=== PATIENT | female | born 1980 | race Caucasian/White ===

== ENCOUNTER 2017-12-29 07:20 | Emergency (ER) | payer OTHER ==
[2017-12-29 07:48] VITALS: O2SAT 100
--- NOTE | 2017-12-29 08:12 | ERPHSYRPT ---
- History of Present Illness Time Seen by Provider: 12/29/17 07:58 Historian: patient Exam Limitations: no limitations Patient Subjective Stated Complaint: left flank pain Triage Nursing Assessment: to er c/o left flank pain onset 2 days riverboat [employer] pt denies any pain with urination states pain increases with movement. pt arrives pwd resp easy [id number] Physician History: The patient is a 37-year-old female complaining of intermittent and worsening left flank pain that began 2 days ago at 2 AM in the morning, waking her up. She has tried to relieve the pain with ibuprofen but it has not worked. She denies nausea, vomiting, or diarrhea. She denies fever or chills. She has no problems with urination. Her last menstrual period was December 16, 2 weeks ago. Her father has a history of kidney stones. The patient has never had kidney stones, but is worried she might have one. Her past medical history is significant for depression, migraines, and Albert's neuroma. Timing/Duration: day(s) (2) Activities at Onset: sleep Quality: sharpness Abdominal Pain Onset Location: flank (left) Pain Radiation: no radiation Severity of Pain-Max: moderate Severity of Pain-Current: moderate Modifying Factors: Improves With: analgesics Associated Symptoms: denies symptoms Previous symptoms: no prior history Allergies/Adverse Reactions: acetaminophen [From Vicodin] Adverse Reaction (Verified 12/29/17 07:49) hydrocodone [From Vicodin] Adverse Reaction (Verified 12/29/17 07:49) Home Medications: Aripiprazole [Abilify] 2.5 mg PO DAILY 12/29/17 [History] Clonazepam [Clonazepam] 0.5 mg PO TID 12/29/17 [History] Lamotrigine [Lamictal] 150 mg PO DAILY 12/29/17 [History] Topiramate [Topiramate] 175 mg PO DAILY 12/29/17 [History] Vortioxetine Hydrobromide [Trintellix] 20 mg PO DAILY 12/29/17 [History] Hx Influenza Vaccination/Date Given: No - Review of Systems Constitutional: No Fever, No Chills Eyes: No Symptoms Ears, Nose, & Throat: No Symptoms Respiratory: No Cough, No Dyspnea Cardiac: No Chest Pain, No Edema, No Syncope Abdominal/Gastrointestinal: No Abdominal Pain, No Nausea, No Vomiting, No Diarrhea Genitourinary Symptoms: No Dysuria Musculoskeletal: Back Pain Skin: No Rash Neurological: No Dizziness, No Focal Weakness, No Sensory Changes Psychological: No Symptoms Endocrine: No Symptoms Hematologic/Lymphatic: No Symptoms Immunological/Allergic: No Symptoms All Other Systems: Reviewed and Negative - Past Medical History Pertinent Past Medical History: Yes Neurological History: No Pertinent History ENT History: No Pertinent History Cardiac History: Other Respiratory History: No Pertinent History Endocrine Medical History: No Pertinent History Musculoskeletal History: No Pertinent History GI Medical History: No Pertinent History History: No Pertinent History Psycho-Social History: No Pertinent History Female Reproductive Disorders: No Pertinent History Other Medical History: tricusped regurgitation - Past Surgical History Past Surgical History: Yes Other Surgical History: breast lift and biopsy of buttocks - Social History Smoking Status: Never smoker Drug Use: none - Female History Hx Last Menstrual Period: 12/16/17 Hx Now: No - Nursing Vital Signs Nursing Vital Signs: Initial Vital Signs Temperature 98.7 F 12/29/17 07:41 Pulse Rate 94 H 12/29/17 07:41 Respiratory Rate 18 12/29/17 07:41 Blood Pressure 105/63 12/29/17 07:41 O2 Sat by Pulse Oximetry 100 12/29/17 07:41 Pain Scale Pain Intensity [Left Back] 7 Pain Intensity 4 - Physical Exam General Appearance: no apparent distress (pt alert and laughing), alert Eye Exam: PERRL/EOMI, eyes nml inspection Ears, Nose, Throat Exam: normal ENT inspection, pharynx normal, moist mucous membranes Neck Exam: normal inspection, non-tender, supple, full range of motion Respiratory Exam: normal breath sounds, lungs clear, No respiratory distress Cardiovascular Exam: regular rate/rhythm, normal heart sounds Gastrointestinal/Abdomen Exam: soft, No tenderness, No mass Pelvic Exam: not done Rectal Exam: not done Back Exam: CVA tenderness (mild left flank tenderness) Extremity Exam: normal inspection, normal range of motion, pelvis stable Neurologic Exam: alert, oriented x 3, cooperative, normal mood/affect, nml cerebellar function, sensation nml, No motor deficits Skin Exam: normal color, warm, dry SpO2 Interpretation: normal SpO2: 100 Oxygen Delivery: Room Air Ordered Tests: Active Orders 24 hr Category Date Time Status IV Insertion STAT Care 12/29/17 08:17 Active AMYLASE Stat Lab 12/29/17 08:32 Completed CBC W DIFF Stat Lab 12/29/17 08:32 Completed CMP Stat Lab 12/29/17 08:32 Completed HCG QUALITATIVE,SERUM Stat Lab 12/29/17 08:32 Completed LIPASE Stat Lab 12/29/17 08:32 Completed Lactic Acid Stat Lab 12/29/17 08:17 Completed UA W/RFX UR CULTURE Stat Lab 12/29/17 08:32 Completed Urine Triage Profile Stat Lab 12/29/17 08:32 Completed Medication Summary Discontinued Medications Generic Name Dose Route Start Last Admin Trade Name Freq PRN Reason Stop Dose Admin Sodium Chloride 1,000 mls @ 999 mls/hr 12/29/17 08:17 12/29/17 08:38 Sodium Chloride 0.9% 1000 Ml IV 12/29/17 09:17 999 mls/hr .Q1H1M STA Administration Sodium Chloride Confirm 12/29/17 08:32 Sodium Chloride 0.9% 1000 Ml Administered 12/29/17 08:33 Dose 1,000 mls @ ud .ROUTE .STK-MED ONE Ketorolac Tromethamine 30 mg 12/29/17 08:17 12/29/17 08:38 Toradol 30 Mg Injection IV 12/29/17 08:18 30 mg STAT ONE Administration Ketorolac Tromethamine Confirm 12/29/17 08:32 Toradol 30 Mg Injection Administered 12/29/17 08:33 Dose 30 mg .ROUTE .STK-MED ONE Lab/Rad Data: Laboratory Result Diagrams 12/29/17 08:32 12/29/17 08:32 Laboratory Results 12/29/17 12/29/17 12/29/17 Range/Units 08:32 08:32 08:32 WBC 6.9 (4.0-10.5) K/mm3 RBC 4.07 L (4.1-5.4) M/mm3 Hgb 12.4 (12.0-16.0) gm/dl Hct 37.2 (35-47) % MCV 91.4 (78-100) fl MCH 30.4 (26-32) pg MCHC 33.3 (32-36) g/dl RDW 12.6 (11.5-14.0) % Plt Count 254 (150-450) K/mm3 MPV 8.8 (6-9.5) fl Gran % 55.1 (36.0-66.0) % Lymphocytes % 33.1 (24.0-44.0) % Monocytes % 7.4 (0.0-12.0) % Eosinophils % 4.1 (0.00-5.0) % Basophils % 0.3 (0.0-0.4) % Basophils # 0.02 (0-0.4) Sodium 141 (136-145) mEq/L Potassium 4.2 (3.5-5.1) mEq/L Chloride 109 H (98-107) mEq/L Carbon Dioxide 25.1 (21-32) mEq/L Anion Gap 10.6 (5-15) MEQ/L BUN 8 L (9-20) mg/dL Creatinine 0.92 (0.55-1.30) mg/dl Estimated GFR > 60 ML/MIN Glucose 88 (70-110) MG/DL Lactic Acid (0.4-2.0) Calcium 9.0 (8.5-10.1) mg/dL Total Bilirubin 0.10 L (0.2-1.0) mg/dL AST 19 (15-37) U/L ALT 23 (12-78) U/L Alkaline Phosphatase 60 (46-116) U/L Serum Total Protein 6.9 (6.4-8.2) gm/dL Albumin 3.8 (3.4-5.0) g/dL Amylase 40 (25-115) U/L Lipase 128 (73-393) U/L Serum , Qual NEGATIVE (Negative) Ur Collection Type Urine Color (YELLOW) Urine Appearance (CLEAR) Urine pH (5-6) Ur Specific [place] (1.005-1.025) Urine Protein (Negative) Urine Ketones (NEGATIVE) Urine Blood (0-5) Tyler/ul Urine Nitrite (NEGATIVE) Urine Bilirubin (NEGATIVE) Urine Urobilinogen (0-1) mg/dL Ur Leukocyte Esterase (NEGATIVE) Urine Culture Reflexed (NO) Urine Glucose (NEGATIVE) mg/dL Urine Opiates Level (NEGATIVE) Ur Methadone (NEGATIVE) Urine Barbiturates (NEGATIVE) Ur Phencyclidine (PCP) (NEGATIVE) Urine Amphetamine (NEGATIVE) U Benzodiazepine Level (NEGATIVE) Urine Cocaine (NEGATIVE) Urine Marijuana (THC) (NEGATIVE) Specimen Received 02/14/18 02/14/18 02/14/18 Range/Units 08:32 08:32 08:17 WBC (4.0-10.5) K/mm3 RBC (4.1-5.4) M/mm3 Hgb (12.0-16.0) gm/dl Hct (35-47) % MCV (78-100) fl MCH (26-32) pg MCHC (32-36) g/dl RDW (11.5-14.0) % Plt Count (150-450) K/mm3 MPV (6-9.5) fl Gran % (36.0-66.0) % Lymphocytes % (24.0-44.0) % Monocytes % (0.0-12.0) % Eosinophils % (0.00-5.0) % Basophils % (0.0-0.4) % Basophils # (0-0.4) Sodium (136-145) mEq/L Potassium (3.5-5.1) mEq/L Chloride (98-107) mEq/L Carbon Dioxide (21-32) mEq/L Anion Gap (5-15) MEQ/L BUN (9-20) mg/dL Creatinine (0.55-1.30) mg/dl Estimated GFR ML/MIN Glucose (70-110) MG/DL Lactic Acid 0.7 (0.4-2.0) Calcium (8.5-10.1) mg/dL Total Bilirubin (0.2-1.0) mg/dL AST (15-37) U/L ALT (12-78) U/L Alkaline Phosphatase (46-116) U/L Serum Total Protein (6.4-8.2) gm/dL Albumin (3.4-5.0) g/dL Amylase (25-115) U/L Lipase (73-393) U/L Serum , Qual (Negative) Ur Collection Type CLEAN CATCH Urine Color YELLOW (YELLOW) Urine Appearance CLEAR (CLEAR) Urine pH 7.0 (5-6) Ur Specific [place] 1.005 (1.005-1.025) Urine Protein NEGATIVE (Negative) Urine Ketones NEGATIVE (NEGATIVE) Urine Blood NEGATIVE (0-5) Tyler/ul Urine Nitrite NEGATIVE (NEGATIVE) Urine Bilirubin NEGATIVE (NEGATIVE) Urine Urobilinogen NORMAL (0-1) mg/dL Ur Leukocyte Esterase NEGATIVE (NEGATIVE) Urine Culture Reflexed NO (NO) Urine Glucose NEGATIVE (NEGATIVE) mg/dL Urine Opiates Level NEG. (NEGATIVE) Ur Methadone NEG. (NEGATIVE) Urine Barbiturates NEG. (NEGATIVE) Ur Phencyclidine (PCP) NEG. (NEGATIVE) Urine Amphetamine NEG. (NEGATIVE) U Benzodiazepine Level NEG. (NEGATIVE) Urine Cocaine NEG. (NEGATIVE) Urine Marijuana (THC) NEG. (NEGATIVE) Specimen Received 12/29/17 0817 - Progress Progress: improved Counseled pt/family regarding: lab results, diagnosis, need for follow-up - Departure Time of Disposition: 10:13 Departure Disposition: Home Clinical Impression: Flank pain Condition: Stable Critical Care Time: No Referrals: NOÉ MAXWELL MD [Primary Care Provider] - Additional Instructions: You have left flank pain. You were given Toradol 30 mg and fluids by IV in the ER. Take Toradol 10 mg every 6 hours as needed, Phenergan 25 mg every 8 hours as needed, and Tylenol 3 one to 2 tablets every 4-6 hours as needed. Follow-up as scheduled with your doctor tomorrow. As we discussed, if your pain has not lessened or is getting worse, your doctor may want to schedule a CT scan of the abdomen and pelvis.
[2017-12-29] MEDS ORDERED: Sodium Chloride 0.9% 1000 ML 1,000 ML IV STA (08:17)
[2017-12-29] MEDS ORDERED: TORAdol 30 mg Injection IV ONE (08:17)
[2017-12-29] MEDS ORDERED: Sodium Chloride 0.9% 1000 ML 1,000 ML ONE (08:32)
[2017-12-29] MEDS ORDERED: TORAdol 30 mg Injection ONE (08:32)
[2017-12-29 08:38] LABS: BASOPHIL % 0.3 % (0.0-0.4); Basophil (Absolute #) 0.02 (0-0.4); Eosinophil % 4.1 % (0.00-5.0); Eosinophil (Absolute #) 0.28 (0-0.5); Granulocyte Absolute (ANC) 3.78 (1.4-6.9); Granulocytes % 55.1 % (36.0-66.0); Hematocrit 37.2 % (35-47); Hemoglobin 12.4 gm/dl (12.0-16.0); Lymphocyte (Absolute #) 2.27 (1.0-4.6); Lymphocytes % 33.1 % (24.0-44.0); Mean Cell Volume 91.4 fl (78-100); Mean Corpuscular Hgb Concent. 33.3 g/dl (32-36); Mean Platelet Volume 8.8 fl (6-9.5); Monocyte (Absolute #) 0.51 (0.0-1.3); Monocytes % 7.4 % (0.0-12.0); Platelet Count 254 K/mm3 (150-450); Red Blood Count 4.07 M/mm3 (4.1-5.4); Red Cell Distribution Width 12.6 % (11.5-14.0); White Blood Count 6.9 K/mm3 (4.0-10.5)
[2017-12-29 08:43] LABS: Mean Corpuscular Hemoglobin 30.4 pg (26-32)
[2017-12-29 08:52] LABS: Amphetamine,Urine NEG. (NEGATIVE); Barbiturate,Urine NEG. (NEGATIVE); Benzodiazepine,Urine NEG. (NEGATIVE); Cocaine,Urine NEG. (NEGATIVE); Methadone,Urine NEG. (NEGATIVE); Opiate,Urine NEG. (NEGATIVE); PCP,Urine NEG. (NEGATIVE); THC,Urine NEG. (NEGATIVE)
[2017-12-29 08:57] LABS: Appearance CLEAR (CLEAR); Bilirubin NEGATIVE (NEGATIVE); Blood NEGATIVE Ery/ul (0-5); Glucose NEGATIVE (NEGATIVE); Ketones NEGATIVE (NEGATIVE); Leukocyte Esterase NEGATIVE (NEGATIVE); Nitrite NEGATIVE (NEGATIVE); Protein,Urine Dip NEGATIVE (Negative); Specific Gravity 1.005 (1.005-1.025); Urobilinogen NORMAL mg/dL (0-1)
[2017-12-29 09:01] LABS: ALBUMIN 3.8 g/dL (3.4-5.0); ALKALINE PHOSPHATASE 60 U/L (46-116); AMYLASE 40 U/L (25-115); ANION GAP 10.6 MEQ/L (5-15); BLOOD UREA NITROGEN 8 mg/dL (9-20); CHLORIDE 109 mEq/L (98-107); Carbon Dioxide 25.1 mEq/L (21-32); Creatinine 1 0.92 mg/dl (0.55-1.30); EST GLOMERULAR FILTRATION RATE > 60 ML/MIN; Glucose 88 MG/DL (70-110); LIPASE 128 U/L (73-393); Potassium 4.2 mEq/L (3.5-5.1); SGOT/AST 19 U/L (15-37); SGPT/ALT 23 U/L (12-78); SODIUM 141 mEq/L (136-145); Total Protein 6.9 gm/dL (6.4-8.2)
[2017-12-29 10:23] VITALS: PULSE 79
[2017-12-29 10:42] VITALS: BP 103/52
== END 2017-12-29 10:42 | disposition home or self-care (01) ==
LOC: ED 07:20
DX: R10.9 Unspecified abdominal pain (principal); Z79.899 Other long term (current) drug therapy
CPT/HCPCS: 36000; 36415; 80053; 80307; 81002; 82150; 83605; 83690; 84703; 85025; 96360; 96374; 99283; 99284; J1885